=== PATIENT | male | born 2000 | race Caucasian/White ===

== ENCOUNTER 2025-02-06 10:11 | Emergency (ER) | payer SELFPAY ==
[~2025-02-06] VITALS: Ht 233.7 cm; Wt 73.0 kg
[2025-02-06 10:23] VITALS: O2SAT 99
[2025-02-06 11:22] VITALS: BP 110/70; PULSE 62; RESP 16; TEMP 36.7; O2SAT 99
== END 2025-02-06 11:23 | disposition home or self-care (01) ==
LOC: ER 10:11
DX: S80.251A Superficial foreign body, right knee, initial encounter (principal); W22.8XXA Striking against or struck by other objects, initial encounter; Y93.89 Activity, other specified; Y92.89 Other specified places as the place of occurrence of the external cause; Y99.8 Other external cause status
CPT/HCPCS: 99282